=== PATIENT | male | born 1950 ===

== ENCOUNTER 2017-12-28 05:00 | Inpatient (IN) | payer OTHER | END 2017-12-29 13:55 | disposition home or self-care (01) | DRG 472 | LOC: O/R 05:00 → SURG 17:55 | PROC: 0RG20A0 Fusion of 2 or more Cervical Vertebral Joints with Interbody Fusion Device, Anterior Approach, Anterior Column, Open Approach (ICD-10-PCS; principal; 2017-12-28) | PROC: 0RT30ZZ Resection of Cervical Vertebral Disc, Open Approach (ICD-10-PCS; 2017-12-28) | PROC: 07DS3ZZ Extraction of Vertebral Bone Marrow, Percutaneous Approach (ICD-10-PCS; 2017-12-28) | DX: M47.12 Other spondylosis with myelopathy, cervical region (principal); M50.023 Cervical disc disorder at C6-C7 level with myelopathy ==

== ENCOUNTER 2018-11-24 15:12 | Emergency (ER) | payer OTHER ==
[~2018-11-24] VITALS: Ht 170.2 cm; Wt 57.6 kg
[~2018-11-24 15:12] MED LIST: AMOX-CLAV 875-1 EACH PO; CARDURA XL4 MG PO; CLONAZEPAM1 MG PO; DOCUSATE SODIU100 MG PO; GABAPENTIN800 MG PO; JANUMET 50-1,01 EACH PO; LOTREL 5-20 MG1 CAP PO; METOPROLOL SUCC25 MG PO; PERCOCET 5-3251 EACH PO; VITAMIN D2000 UNIT PO; [UNRECOGNIZED DRUG - OTHER] PO
[2018-11-24] MEDS ORDERED: JANUMET XR 50-1 EACH (15:23)
[2018-11-24] MEDS ORDERED: TAMS0.4C (15:31)
[2018-11-24] MEDS ORDERED: TOPROL XL25 M1 (15:31)
[2018-11-24] MEDS ORDERED: LOTREL 5-10 MG1 CAP (15:31)
== END 2018-11-25 00:24 | disposition home or self-care (01) ==
LOC: ER 15:12
DX: T88.59XA Other complications of anesthesia, initial encounter (principal); M54.5 Low back pain; T41.3X5A Adverse effect of local anesthetics, initial encounter; N40.1 Benign prostatic hyperplasia with lower urinary tract symptoms; R33.8 Other retention of urine